=== PATIENT | female | born 1960 | race African-American/Black ===

== ENCOUNTER 2022-04-27 19:25 | Emergency (ER) | payer OTHER ==
[~2022-04-27] VITALS: Ht 162.6 cm; Wt 59.0 kg
[2022-04-27] MEDS ORDERED: KETOROLAC 30MG/ML VIAL IV STA (20:12)
[2022-04-27] MEDS ORDERED: ONDANSETRON HCL 4MG/2ML INJ IV STA (20:12)
[2022-04-27] MEDS ORDERED: SODIUM CHLORIDE 0.9% 1,000 ML IV ONE (20:15)
[2022-04-27] MEDS ORDERED: FAMOTIDINE 20MG/2ML VIAL IV ONE (20:15)
[2022-04-27] MEDS ORDERED: MAGNESIUM/ALUMINUM HYDROXIDE/SIMETHICONE 30ML UDC PO ONE (20:15)
[2022-04-27 20:39] VITALS: BP 161/89
[2022-04-27 21:00] LABS: BASOPHILS % 0.5 % (0.0-2.0); EOSINOPHILS % 1.1 % (0.0-5.0); HEMOGLOBIN. 15.5 g/dL (12.0-16.0); LYMPHOCYTES % 18.6 % (20.0-50.0); MEAN CORPUSCULAR HEMOGLOBIN 34.3 pg (28.0-32.0); MEAN CORPUSCULAR VOLUME 99.8 fL (81.0-99.0); MEAN PLATELET VOLUME 7.6 fl (7.4-10.4); MONOCYTES % 7.2 % (2.0-8.0); NEUTROPHILS % 72.6 % (40.0-76.0); PLATELET 212 x1000/uL (130-400); RED BLOOD CELL COUNT 4.51 mill/uL (4.2-5.4); RED CELL DISTRIBUTION WIDTH 14.6 % (11.6-14.6)
[2022-04-27 21:07] LABS: CHLORIDE 107 mEq/L (98-107)
== END 2022-04-27 23:09 | disposition left against medical advice (07) ==
LOC: ER 19:25 → CANBEDREQ 04-28 08:51
DX: K56.609 Unspecified intestinal obstruction, unspecified as to partial versus complete obstruction (principal); R11.2 Nausea with vomiting, unspecified; I10 Essential (primary) hypertension; Z87.19 Personal history of other diseases of the digestive system
CPT/HCPCS: 36415; 71045; 74176; 76705; 80053; 83690; 85025; 93005; 96361; 96374; 96375; 99285; J1885; J2405; J3490; J7030